=== PATIENT | female | born 1955 | race Hispanic/Latino ===

== ENCOUNTER 2018-07-19 08:00 | Outpatient (CLI) | payer BC ==
--- NOTE | 2018-07-19 09:54 | Mammography Report ---
RIGHT DIGITAL DIAGNOSTIC MAMMOGRAM and RIGHT BREAST ULTRASOUND: 07/19/18 08:00:00 CLINICAL: Recalled for asymmetry. COMPARISON:06/16/18 screening mammogram FINDINGS: Spot magnification MLO and exaggerated CC views were obtained. Near complete effacement of asymmetry on the MLO views. A 7.5 mm circumscribed density is identified on the exaggerated view. It is located near the muscle and has a small focus of excentric fat. Ultrasound of the outer right breast was performed and demonstrated a lymph node with a small fatty hilum at 9:30 o'clock 7 cm from the nipple. It measures 5.0 x 5.4 x 3.7 mm and correlates with the mammographic density. IMPRESSION: A probably benign intramammary lymph node at 9:30 o'clock 7 cm from the nipple. BI-RADS CATEGORY: 3 - - Probably Benign RECOMMENDATION: Six month followup right mammogram and ultrasound if needed. ACR BI-RADS MAMMOGRAPHIC CODES: 0 = Needs additional imaging evaluation; 1 = Negative; 2 = Benign; 3 = Probably benign; 4 = Suspicious; 5 = Malignant; 6 = Known biopsy-proven malignancy COMMENT: 1. Dense breast tissue, i.e., adenosis, fibrocystic changes, etc., may obscure an underlying neoplasm. 2. Approximately 10% of cancers are not detected with mammography. 3. A negative mammography report should not delay biopsy if a clinically suspicious mass is present. COMMENT: Patient follow-up letters are generated via our [employer] application.
== END 2018-07-19 08:01 | disposition home or self-care (01) ==
LOC: SPVWC 08:00
PROVIDERS: ATTEND Internal Medicine
DX: R92.8 Other abnormal and inconclusive findings on diagnostic imaging of breast (principal)

== ENCOUNTER 2018-08-24 07:15 | Outpatient (CLI) | payer BC ==
--- NOTE | 2018-08-24 21:11 | XRay Report ---
FINAL REPORT EXAM: XR SPINE LUMBOSACRAL 4+V HISTORY: SCIATICA, LEFT SIDE TECHNIQUE: 5 views of the lumbar spine PRIORS: None. FINDINGS: The lumbar vertebral bodies are normal in height. Vertebral alignment is normal. The disc spaces appe ar well-preserved. There are calcifications in the right side of the abdomen that appear to be within the colon. There a re calcified phleboliths in the pelvis. IMPRESSION: Normal L-spine series.
== END 2018-08-24 07:16 | disposition home or self-care (01) ==
LOC: XRAY 07:15
PROVIDERS: ATTEND Internal Medicine
DX: M54.32 Sciatica, left side (principal); M19.90 Unspecified osteoarthritis, unspecified site
CPT/HCPCS: 72110

== ENCOUNTER 2018-09-28 08:34 | Outpatient (CLI) | payer BC ==
[2018-09-28 08:57] LABS: Hematocrit 42.5 % (30.3-42.9); Hemoglobin 14.2 gm/dl (10.1-14.3); Mean Corpuscular HGB Conc 34 % (30-34); Mean Corpuscular Volume 94 fl (79-97); Platelet Count 276 K/mm3 (140-440); Red Blood Count 4.52 M/mm3 (3.65-5.03); Red Cell Distribution Width 13.4 % (13.2-15.2)
[2018-09-28 09:23] LABS: Albumin 4.2 g/dL (3.9-5)
[2018-09-28 09:59] LABS: Chol/HDL Ratio 2.88 %
[2018-09-28 11:24] LABS: Total Cells Counted 100
[2018-09-28 11:25] LABS: Anisocytosis Few; Giant Platelets Rare; Platelet Estimate Consistent w Auto
== END 2018-09-28 08:35 | disposition home or self-care (01) ==
LOC: LAB 08:34
PROVIDERS: ATTEND Nurse Practitioner
DX: E78.2 Mixed hyperlipidemia (principal); R53.81 Other malaise; R53.83 Other fatigue; M19.90 Unspecified osteoarthritis, unspecified site
CPT/HCPCS: 36415; 80053; 80061; 84443; 85007; 85025

== ENCOUNTER 2018-12-25 07:40 | Outpatient (CLI) | payer BC ==
[2018-12-25 08:26] LABS: Basophils % (Auto) 0.7 % (0.0-1.8); Eosinophils # (Auto) 0.1 K/mm3 (0.0-0.4); Eosinophils % (Auto) 1.6 % (0.0-4.3); Hematocrit 40.7 % (30.3-42.9); Hemoglobin 13.6 gm/dl (10.1-14.3); Lymphocytes # (Auto) 1.5 K/mm3 (1.2-5.4); Lymphocytes % (Auto) 27.9 % (13.4-35.0); Mean Corpuscular HGB Conc 33 % (30-34); Mean Corpuscular Volume 95 fl (79-97); Monocytes # (Auto) 0.5 K/mm3 (0.0-0.8); Monocytes % (Auto) 9.1 % (0.0-7.3); Platelet Count 217 K/mm3 (140-440); Red Blood Count 4.29 M/mm3 (3.65-5.03); Red Cell Distribution Width 12.7 % (13.2-15.2)
[2018-12-25 08:44] LABS: Albumin 3.8 g/dL (3.9-5); Calcium 8.6 mg/dL (8.4-10.2); Chol/HDL Ratio 2.66 %
[2018-12-28 14:42] LABS: Vitamin D, 25-OH, D2 <4 ng/mL
== END 2018-12-25 07:41 | disposition home or self-care (01) ==
LOC: LAB 07:40
PROVIDERS: ATTEND Internal Medicine
DX: E55.9 Vitamin D deficiency, unspecified (principal)
CPT/HCPCS: 36415; 80053; 80061; 82306; 83036; 84443; 85025

== ENCOUNTER 2019-01-22 07:42 | Outpatient (CLI) | payer BC ==
--- NOTE | 2019-01-22 16:05 | Ultrasound Report ---
Pelvic ultrasound INDICATION: Pelvic pain Only an endovaginal study was performed. Uterus measures 6.5 x 2.6 x 4.1 cm. Endometrial stripe measures 4 mm. No fluid is seen within the end ometrial canal. No uterine masses are obvious. Ovaries are not visualized. No adnexal masses are seen. Only a trace of free fluid is seen. IMPRESSION: No significant abnormalities are seen Signer Name: Bernabe Lindsay MD Signed: 01/22/2019 4:00 PM Workstation Name: [id number]
== END 2019-01-22 07:43 | disposition home or self-care (01) ==
LOC: US 07:42
PROVIDERS: ATTEND Internal Medicine
DX: R10.2 Pelvic and perineal pain (principal)
CPT/HCPCS: 76830

== ENCOUNTER 2019-01-25 11:05 | Outpatient (CLI) | payer BC ==
--- NOTE | 2019-01-25 13:24 | Ultrasound Report ---
RIGHT BREAST DIAGNOSTIC MAMMOGRAM WITH CAD AND RIGHT BREAST ULTRASOUND HISTORY: Follow-up asymmetry. COMPARISON: 07/19/2018 FINDINGS: Right Breast Mammogram: Digital CC and MLO views demonstrate a heterogeneously dense breast parenchy mal pattern which somewhat lessens the sensitivity of the evaluation. The previously described descr ibed density is smaller and appears to be a lymph node. However, a new versus circumscribed focal asy mmetry in the outer breast measures 8 mm. Right Breast Ultrasound: Sonographic evaluation of the outer right breast was performed and demonstr ated an oval smooth hypoechoic mass or cyst at 9:00 5 cm from the nipple. It is near the pectoral mus penelope and measures 8 x 8 x 5 mm. It correlates with the mammographic density. A few benign cysts and a couple of benign intramammary lymph nodes at 10:00 12 cm from the nipple. IMPRESSION A new 8 mm cyst versus solid mass at 9:00 5 cm from the nipple. Recommend ultrasound-guided needle as piration/biopsy. I discussed the findings and the recommendation for needle aspiration/biopsy with the patient at the time of the exam. BIRADS 4: Suspicious abnormality. According to the [employer], yearly mammograms are recommended starting at age 40 and continuing as long as a woman is in good health. Clinical Breast Exams should be part of a period ic health exam-about every 3 years for women in their 20s and 30s and every year for women 40 and ove r. Breast self exam is an option for women starting in their 20s. Any breast change noted on a breast self exam should be reported promptly to the patient's healthcare provider. Breast MRI is recommende d for women with an approximately 20-25% or greater lifetime risk of breast cancer, including women w ith a strong family history of breast or ovarian cancer and women who have been treated for Hodgkin's disease. A negative Mammography report should not discourage follow up or biopsy of a clinically significant f inding and/or abnormality. Dense breast tissue may obscure small neoplasms. Signer Name: Leon Vallejo MD Signed: 01/25/2019 1:19 PM Workstation Name: [id number]
== END 2019-01-25 11:06 | disposition home or self-care (01) ==
LOC: SPVWC 11:05
PROVIDERS: ATTEND Internal Medicine
DX: N60.01 Solitary cyst of right breast (principal)

== ENCOUNTER 2019-02-08 12:17 | Outpatient (CLI) | payer BC ==
--- NOTE | 2019-02-08 14:34 | Ultrasound Report ---
Right CYST ASPIRATION The procedure was explained to the patient and informed consent obtained. PROCEDURE: Using sonographic guidance, 6 mL of 1% buffered lidocaine, and a 22-gauge needle, 2 mL of fluid was removed from the posterior right breast at 9:00.. Because of its benign appearance, the fl uid was discarded. No immediate complications occurred. The mass completely resolved upon aspiration consistent with a benign cyst. INTERPRETATION: Images made real-time during the procedure demonstrate the needle tip to be in the c enter of the lesion and the lesion to collapse and disappear during aspiration. Postprocedure mammogram showed complete resolution of previously described mass in the 9:00 position of the right breast. Impression: Complete resolution of previously noted hypoechoic mass in the 9:00 position of the right breast. BI-RADS 2: Benign findings Thank you for allowing us to participate in the care of your patient. Signer Name: Beth Woody MD Signed: 02/08/2019 2:30 PM Workstation Name: [id number]
== END 2019-02-08 12:18 | disposition home or self-care (01) ==
LOC: SPVWC 12:17
PROVIDERS: ATTEND Surgery
DX: N60.01 Solitary cyst of right breast (principal); M19.90 Unspecified osteoarthritis, unspecified site; Z91.81 History of falling; Z88.2 Allergy status to sulfonamides

== ENCOUNTER 2019-08-14 09:49 | Outpatient (CLI) | payer MEDICARE, OTHER ==
--- NOTE | 2019-08-14 11:25 | Ultrasound Report ---
BILATERAL DIGITAL DIAGNOSTIC MAMMOGRAM WITH CAD 08/14/2019 BILATERAL LIMITED BREAST ULTRASOUND INDICATION: Follow-up after right benign cyst aspiration at 9:00 02/08/2019. She is also due for screen ing of the left breast. TECHNIQUE: Digital bilateral mammographic imaging was performed. Limited ultrasound was performed. T his examination was interpreted with the benefit of Computer-Aided Detection (CAD) analysis. COMPARISON: 02/08/2019, 01/25/2019 and 06/16/2018 FINDINGS: Breast Density: The breasts are heterogeneously dense, which may obscure small masses. MAMMOGRAPHIC FINDINGS: There is no evidence of dominant mass, suspicious calcifications or architectu ral distortion in the right breast. A new left retroareolar circumscribed 2.9 cm mass. ULTRASOUND FINDINGS: Targeted ultrasound evaluation was performed of the area of interest. Ultrasou nd of the right breast demonstrated an oval relatively anechoic cyst at 9:00 5 cm from the nipple vivien suring 7 x 3 x 7 mm. It correlates with the previously aspirated cyst which measured 8 x 5 x 8 mm. It is not as apparent on the mammogram as it was previously. Ultrasound of the left breast demonstrated a bilobed subareolar cyst at 3:00 measuring 3.1 x 1.5 x 3.2 cm. This cyst correlates with the mammog raphic mass. A cyst with low-level internal echoes at 3:00 3 cm from the nipple measures 1.3 x 0.6 x 1.4 cm and a subareolar cyst at 2:00 measures 4 mm. IMPRESSION: Bilateral benign cysts and no suspicious finding. Follow up recommendation: Routine yearly BI-RADS Category 2: Benign. A "normal" or negative report should not discourage follow up or biopsy of a clinically significant f inding. A written summary of these findings will be mailed to the patient. The patient will be entered into a mammography reporting system which will generate a reminder letter for the patient's next appointmen t at the appropriate interval. According to the [employer], yearly mammograms are recommended starting at age 40 and continuing as long as a woman is in good health. Breast MRI is recommended for women with an oscar roximately 20-25% or greater lifetime risk of breast cancer, including women with a strong family his tory of breast or ovarian cancer and women who have been treated for Hodgkin's disease. Signer Name: Leon Vallejo MD Signed: 08/14/2019 11:21 AM Workstation Name: [id number]
== END 2019-08-14 09:50 | disposition home or self-care (01) ==
LOC: SPVWC 09:49
PROVIDERS: ATTEND Surgery
DX: N60.01 Solitary cyst of right breast (principal); N60.02 Solitary cyst of left breast; N63.20 Unspecified lump in the left breast, unspecified quadrant
CPT/HCPCS: 77066

== ENCOUNTER 2020-08-19 09:09 | Outpatient (CLI) | payer MEDICARE, OTHER ==
--- NOTE | 2020-08-19 11:47 | Mammography Report ---
DIGITAL SCREENING MAMMOGRAM WITH CAD, 08/19/2020 CLINICAL INFORMATION / INDICATION: Routine screening mammography. TECHNIQUE: Digital bilateral 2D mammography was obtained in the craniocaudal and mediolateral obliqu e projections. This examination was interpreted with the benefit of Computer-Aided Detection analysis . COMPARISON: Bilateral mammogram 06/16/2018, right mammogram 01/25/2019, right mammogram 02/08/2019, bila teral mammogram 08/14/2019, bilateral breast ultrasound 08/14/2019 FINDINGS: Breast Density: The breasts are heterogeneously dense, which may obscure small masses. In the central 3:00 position of the left breast the nodularity seen previously has noticeably increas ed. On prior study this appeared to be due to a high lobe large simple cyst as well as a moderately c omplicated cyst. In the right breast posterior depth centrally at 11:00, an enlarging probable cyst i s seen. On prior ultrasound in the 9:00 deep position a 7 mm probable cyst was seen which may be the same lesion but has enlarged radiographically. IMPRESSION: Increase in nodularity bilaterally which probably is benign but given the change and the prior appearance on ultrasound I would suggest repeat ultrasound bilaterally. Follow up recommendation: As above BI-RADS Category 0: Incomplete. Needs additional imaging evaluation and/or prior mammograms for taylor shankar. A "normal" or negative report should not discourage follow up or biopsy of a clinically significant f inding. A written summary of these findings will be mailed to the patient. The patient will be entered into a mammography reporting system which will generate a reminder letter for the patient's next appointmen t at the appropriate interval. The [employer] recommends yearly mammograms starting at age 40 and continuing as l kaya as a woman is in good health. Breast MRI is recommended for women with an approximate 20-25% or greater lifetime risk of breast cancer, including women with a strong family history of breast or ova julia cancer or who have been treated for Hodgkin's disease. Signer Name: Bernabe Lindsay MD Signed: 08/19/2020 10:12 AM Workstation Name: [id number]
== END 2020-08-19 09:10 | disposition home or self-care (01) ==
LOC: SPVWC 09:09
PROVIDERS: ATTEND Surgery
DX: Z12.31 Encounter for screening mammogram for malignant neoplasm of breast (principal); N64.89 Other specified disorders of breast
CPT/HCPCS: 77067

== ENCOUNTER 2020-09-09 08:39 | Outpatient (CLI) | payer MEDICARE, OTHER ==
--- NOTE | 2020-09-09 10:33 | Ultrasound Report ---
ULTRASOUND BREAST BILATERAL COMPLETE, 09/09/2020 CLINICAL INFORMATION / INDICATION: ABNORMAL MAMMO R92.8. Patient presents as a callback from screenin g mammogram for further evaluation of nodular densities in both breasts. TECHNIQUE: Complete sonographic evaluation of all 4 quadrants and retroareolar region was performed. COMPARISON: Prior mammogram 08/19/2020 and bilateral breast ultrasound 08/14/2019 FINDINGS: Right breast: Corresponding with the nodular density seen on recent mammogram, there is a 10 mm benig n simple cyst in the right breast 9:00 position located 5 cm from the nipple. Complete ultrasound of the right breast reveals several additional subcentimeter benign simple and clustered cysts. No suspi cious solid lesion identified. Left breast: Corresponding with the nodular density seen on recent mammogram, there are clustered cys ts in the left breast 3:00 position located 3 cm from the nipple, the larger measuring up to 3 cm. Co mplete ultrasound of the left breast reveals several additional subcentimeter benign simple cysts. No suspicious solid lesion identified. IMPRESSION: 1. Bilateral benign cysts account for the nodular densities seen on recent mammogram. No suspicious s olid lesion identified. Follow up recommendation: Routine yearly BI-RADS Category 2: Benign. A normal or "negative" report should not preclude biopsy or follow-up of a clinically suspicious find ing. Signer Name: Sharonda Willis MD Signed: 09/09/2020 10:29 AM Workstation Name: [id number]
== END 2020-09-09 08:40 | disposition home or self-care (01) ==
LOC: SPVWC 08:39
PROVIDERS: ATTEND Surgery
DX: N60.01 Solitary cyst of right breast (principal); N60.02 Solitary cyst of left breast; R92.8 Other abnormal and inconclusive findings on diagnostic imaging of breast

== ENCOUNTER 2021-09-18 08:08 | Outpatient (CLI) | payer MEDICARE, OTHER ==
--- NOTE | 2021-09-18 12:11 | Mammography Report ---
BILATERAL DIGITAL DIAGNOSTIC MAMMOGRAM WITH CAD CONVENTIONAL, 09/18/2021 BILATERAL LIMITED BREAST ULTRASOUND CLINICAL INFORMATION / INDICATION: History of bilateral breast nodules/cysts. R92.2 TECHNIQUE: Digital bilateral mammographic imaging was performed. Limited ultrasound was performed. Th is examination was interpreted with the benefit of Computer-Aided Detection (CAD) analysis. COMPARISON: 02/18/2016 through 08/19/2020. FINDINGS: Breast Density: The breasts are heterogeneously dense, which may obscure small masses. MAMMOGRAPHIC FINDINGS: No dominant mass, suspicious calcifications, or architectural distortion in ei ther breast. Benign-appearing nodularity bilaterally, left greater than right, has shown significant improvement. No new suspicious abnormality is seen. ULTRASOUND FINDINGS: Targeted ultrasound evaluation was performed of the area of interest. Right: There is a 7.9 cm simple cyst in the right lateral breast at the 9:00 position 5 cm from the n ipple which measured 1 cm previously. No new abnormality is seen. Left: There are 2 adjacent simple and mildly complicated cysts at the 3:00 position 3 cm from the nip ple. The largest lesion measures 1.6 cm. The largest lesion measured 3 cm previously. No new abnormal ity is seen. IMPRESSION: No mammographic or sonographic evidence of malignancy. Follow up recommendation: Routine yearly BI-RADS Category 2: BENIGN. A "normal" or negative report should not discourage follow up or biopsy of a clinically significant f inding. A written summary of these findings will be mailed to the patient. The patient will be entered into a mammography reporting system which will generate a reminder letter for the patient's next appointmen t at the appropriate interval. According to the [employer], yearly mammograms are recommended starting at age 40 and continuing as long as a woman is in good health. Breast MRI is recommended for women with an oscar roximately 20-25% or greater lifetime risk of breast cancer, including women with a strong family his tory of breast or ovarian cancer and women who have been treated for Hodgkin's disease. Signer Name: Freddy Smart MD Signed: 09/18/2021 12:07 PM Workstation Name: [id number]
== END 2021-09-18 08:09 | disposition home or self-care (01) ==
LOC: MAMMO 08:08
PROVIDERS: ATTEND Surgery
DX: N60.01 Solitary cyst of right breast (principal)
CPT/HCPCS: 77066